=== PATIENT | male | born 1965 | race Caucasian/White ===

== ENCOUNTER 2018-08-08 08:13 | Emergency (ER) | payer OTHER ==
[~2018-08-08] VITALS: Ht 167.6 cm; Wt 84.1 kg
[~2018-08-08 08:13] MED LIST: ATARAX 10MG10 MG/TAB PO; ATARAX 25MG25 MG/TAB PO; BUSPAR5 MG PO; KLONOPIN 0.5MG0.5 MG PO; MELATONIN1 MG PO; MINIPRESS 5M5 MG/CAP PO; NO HOME MEDICATIONS; PROZAC 20MG20 MG PO; ZOLOFT 25MG25 MG PO
[2018-08-08 08:19] VITALS: BP 135/86; PULSE 73; TEMP 97.5
[2018-08-08] MEDS ORDERED: MOTRIN 800800 MG/TAB PO (08:42)
[2018-08-08] MEDS ORDERED: FLEXERIL 1010 MG/TAB PO (09:26)
[2018-08-08] MEDS ORDERED: NAPROXEN 3375 MG/TAB PO (09:26)
[2018-08-08] MEDS ORDERED: NEXIUM 20MG20 MG PO (09:26)
[2018-08-08] MEDS ORDERED: NORCO 325 MG-51 TAB PO (09:27)
== END 2018-08-08 09:45 | disposition home or self-care (01) ==
LOC: COL.ER 08:13
DX: M54.42 Lumbago with sciatica, left side (principal); L25.8 Unspecified contact dermatitis due to other agents
CPT/HCPCS: J1885

== ENCOUNTER 2021-04-10 14:04 | Emergency (ER) | payer OTHER ==
[~2021-04-10] VITALS: Ht 167.6 cm; Wt 97.7 kg
[~2021-04-10 14:04] MED LIST changes: +FLEXERIL 1010 MG/TAB PO; +MOTRIN 800800 MG/TAB PO; +NAPROXEN 3375 MG/TAB PO; +NEXIUM 20MG20 MG PO; +NORCO 325 MG-51 TAB PO
[2021-04-10 14:23] VITALS: TEMP 97.8
[2021-04-10 15:11] LABS: BASO % 0.4 % (0.0-2.0); EOS # 0.2 K/mm3 (0.0-0.7); EOS % 2.3 % (0.0-4.0); GRAN % 71.4 % (42.2-75.2); HEMATOCRIT 47.2 % (42.0-52.0); HEMOGLOBIN 15.3 g/dl (13.5-18.0); LYMPH # 1.5 K/mm3 (1.2-3.4); LYMPH % 17.6 % (20.0-51.0); MEAN CELL VOLUME 82 fl (80.0-100.0); MEAN CORPUSCULAR HEMOGLOBIN 27 pg (27-31); MEAN CORPUSCULAR HGB CONC 32 g/dl (33.0-37.0); MEAN PLATELET VOLUME 12.5 fl (7.4-10.4); MONO # 0.7 K/mm3 (0.1-0.6); MONO % 7.9 % (1.7-9.3); PLATELET COUNT 152 K/mm3 (130-400); RED BLOOD COUNT 5.73 M/mm3 (4.20-5.60); REDCELL DISTRIBUTION WIDTH-CV 13.8 % (11.5-14.5)
[2021-04-10 15:28] LABS: ALANINE AMINOTRANSFERASE 21 U/L (0-55); ALBUMIN 3.6 gm/dL (3.5-5.0); ALKALINE PHOSPHATASE 100 U/L (40-150); ANION GAP 9 mmol/L (7-16); AST,SGOT 18 U/L (5-34); BILIRUBIN,TOTAL 0.5 mg/dL (0.2-1.2); BLOOD UREA NITROGEN 20 mg/dL (8-26); CARBON DIOXIDE 23 mmol/L (22-29); CHLORIDE 105 mmol/L (98-107); CREATININE, serum 1.01 mg/dL (0.72-1.25); GLUCOSE 109 mg/dL (70-99); POTASSIUM 4.5 mmol/L (3.5-4.5); SODIUM 137 mmol/L (136-145); TOTAL PROTEIN 6.6 gm/dL (6.2-8.1)
[2021-04-10 15:35] LABS: TROPONIN-I < 0.010 ng/mL (0.00-0.033)
[2021-04-10 16:19] VITALS: BP 131/76; PULSE 60
== END 2021-04-10 16:27 | disposition home or self-care (01) ==
LOC: COL.ER 14:04
PROVIDERS: Personal Emergency Response Attendant
DX: R06.00 Dyspnea, unspecified (principal)